=== PATIENT | male | born 1935 | race Caucasian/White ===

== ENCOUNTER 2023-07-24 09:40 | Outpatient (CLI) | payer MEDICARE, SELFPAY ==
[2023-07-24 11:25] LABS: Hematocrit 27.3 % (37-53); Mean Corpuscular HGB Conc 31.5 g/dL (30-55); Mean Corpuscular Hemoglobin 32.6 pg (27-33); Mean Corpuscular Volume 103.4 fl (82-101); Mean Platelet Volume 11.8 fL (7.4-10.4); Platelet Count 37 10^3/cmm (157-399); Red Blood Count 2.64 10^6/uL (3.85-5.65); Red Cell Distribution Width 16.7 % (12.1-15.1); White Blood Count 8.13 10^3/uL (3.29-11.43)
[2023-07-24 12:16] LABS: Slide Review Slide Review Perform
[2023-07-24 12:17] LABS: Absolute Neutrophil 4.7 10^3/cmm (1.4-6.5); Absolute Segmented Neutrophil 4.4 10/cmm (1.6-7.1); Band Neutrophils Absolute 0.3 10^3/cmm (0.0-1.2); Eosinophils 0 %; Lymphocytes 24 %; Lymphocytes Absolute 2.1 10^3/cmm (1.2-3.4); Monocytes Absolute 0.7 10^3/cmm (0.1-0.6); Platelet Estimate Decreased (Normal); Segmented Neutrophils 54 %; Total Cells Counted 100 (0-100)
[2023-07-24 12:18] LABS: Anisocytosis 2+; Macrocytosis 2+; Poikilocytosis 1+; Polychromasia 1+
== END 2023-07-24 09:41 | disposition home or self-care (01) ==
PROVIDERS: Visit Provider Internal Medicine Hematology & Oncology
DX: D69.6 Thrombocytopenia, unspecified (principal)
CPT/HCPCS: 36415; 85007; 85025